=== PATIENT | female | born 1955 | race Caucasian/White ===

== ENCOUNTER 2021-06-01 04:41 | Emergency (ER) | payer BC, SELFPAY ==
[~2021-06-01] VITALS: Ht 157.5 cm; Wt 53.5 kg
[~2021-06-01 04:41] MED LIST: HYDR50CA PO; [UNRECOGNIZED DRUG - CODE] PO
[2021-06-01 04:50] VITALS: BP_SYST 153
--- NOTE | 2021-06-01 05:54 | NUR ---
ER examining patient in the lobby.
[2021-06-01] MEDS ORDERED: ONDANSETRON HCL 4 MG/2 ML VIAL IVP ONE (06:00)
[2021-06-01] MEDS ORDERED: MORPHINE 4 MG INJ. 4 MG/ML VIAL IVP ONE (06:00)
[2021-06-01] MEDS ORDERED: NACL 0.9% 1,000 ML IV ONE (06:00)
--- NOTE | 2021-06-01 07:15 | NUR ---
Assumed care of Pt.
--- NOTE | 2021-06-01 07:20 | NUR ---
Pt AAO bib c/o LLQ abd pain w/ nausea onset 1am. Pt has h/o migraine, fibromyalgia, GERD, and asthma. Pt reported 10/10 pain on arrival. Currently pain level is 3/10. V/S stable.
[2021-06-01 08:19] LABS: BASOPHILS # (AUTO) 0.1 K/uL (0.0-0.2); BASOPHILS % (AUTO) 0.4 % (0.0-2.0); HEMATOCRIT 42.8 % (36-48); LYMPHOCYTES # (AUTO) 2.1 K/uL (1.0-5.5); LYMPHOCYTES % (AUTO) 11.6 % (20.5-51.5); MEAN CORPUSCULAR HEMOGLOBIN 26 pg (27-31); MEAN CORPUSCULAR HGB CONC 33 % (32-36); MEAN CORPUSCULAR VOLUME 80 fL (79.0-98.0); MONOCYTES # (AUTO) 0.5 K/uL (0.0-1.0); MONOCYTES % (AUTO) 2.8 % (1.7-9.3); NEUTROPHILS # (AUTO) 15.3 K/uL (1.8-7.7); NEUTROPHILS % (AUTO) 85.2 % (40.0-70.0); PLATELET COUNT (AUTO) 367 K/uL (130-430); RED BLOOD CELL COUNT(AUTO) 5.34 MIL/uL (4.2-6.2); RED CELL DISTRIBUTION WIDTH 14.1 % (9.0-15.0); WHITE BLOOD COUNT (AUTO) 17.9 K/uL (4.8-10.8)
[2021-06-01] MEDS ORDERED: HYDROcodone/ACETAMIN 10-325 MG TAB PO ONE (08:30)
[2021-06-01] MEDS ORDERED: GABAPENTIN 300 MG CAPSULE PO ONE (08:30)
[2021-06-01] MEDS ORDERED: PREGABALIN 25 MG CAPSULE (LYRICA) PO ONE (08:30)
[2021-06-01] MEDS ORDERED: KETOROLAC TROMETHAMINE 60 MG/2 ML VIAL IM ONE (08:30)
[2021-06-01] MEDS ORDERED: ONDA4TAB5 PO (08:31)
[2021-06-01 08:32] LABS: CALCIUM 9.2 mg/dL (8.4-11.0); CREATININE 1.17 mg/dL (0.55-1.30); POTASSIUM 4.6 mmol/L (3.5-5.1)
[2021-06-01] MEDS ORDERED: TAMS-11 PO (08:32)
--- NOTE | 2021-06-01 08:40 | NUR ---
Urine specimen obtained and sent to lab for analysis.
[2021-06-01 08:45] LABS: TOTAL BILIRUBIN 0.8 mg/dL (0.0-1.0)
--- NOTE | 2021-06-01 09:06 | NUR ---
Pt is resting and awaiting disposition.
[2021-06-01 09:59] LABS: BILIRUBIN,URINE NEGATIVE (NEGATIVE); BLOOD, URINE 3+ (NEGATIVE); CLARITY/URINE SL CLOUDY (CLEAR); COLOR,URINE YELLOW (YELLOW); GLUCOSE,URINE NEGATIVE (NEGATIVE); KETONES,URINE 1+ (NEGATIVE); LEUKOCYTE ESTERASE ,URINE TRACE (NEGATIVE); NITRITE, URINE NEGATIVE (NEGATIVE); PH,URINE 5.5 (5.0-8.0); PROTEIN URINE TRACE (NEGATIVE); UROBILINOGEN,URINE 0.2 (0.2-1.0)
[2021-06-01 10:32] LABS: BACTERIA,URINE FEW /HPF (None Seen); RBC,URINE 20-50 /HPF (0-3)
[2021-06-01 10:35] VITALS: BP_SYST 148
--- NOTE | 2021-06-01 10:35 | NUR ---
Patient given written and verbal discharge instructions and verbalizes understanding. Dr. Darcie YOST MD discussed with patient the results and treatment provided. Patient in stable condition. ID arm band removed. IV catheter removed intact and dressing applied, no active bleeding. Rx of Zofran per Dr. Sprague. Patient educated on pain management and to follow up with PMD. Pain Scale 0/10. Opportunity for questions provided and answered. Medication side effect fact sheet provided.
== END 2021-06-01 10:35 | disposition home or self-care (01) ==
LOC: SED 04:41
DX: N20.0 Calculus of kidney (principal); J45.909 Unspecified asthma, uncomplicated; Z79.899 Other long term (current) drug therapy; Z20.822 Contact with and (suspected) exposure to COVID-19
CPT/HCPCS: 36415; 74176; 76376; 80053; 81000; 85025; 87086; 87426; 96372; 99284; J1885

== ENCOUNTER 2021-06-07 20:49 | Emergency (ER) | payer BC, SELFPAY ==
[~2021-06-07] VITALS: Ht 154.9 cm; Wt 53.5 kg
[~2021-06-07 20:49] MED LIST changes: -HYDR50CA PO; +ONDA4TAB5 PO; +TAMS-11 PO; -[UNRECOGNIZED DRUG - CODE] PO
[2021-06-07 21:30] VITALS: BP_SYST 150
--- NOTE | 2021-06-07 21:40 | NUR ---
Patient brought in by family c/o persistent left lower quadrant abdominal pain radiating to left flank pain since she was diagnosed with ureteral colic at this emergency department on June 01. CT scanning of the abdomen showed a 3 mm calculus in the proximal left ureter. Patient was discharged with a prescription for Flomax and [place]. Pain is persisted but no vomiting or fever. Patient reports taking [place] tonight without relief of pain. Patient breathing easy, not in distress. Patient ambulatory with assistance.
[2021-06-07 23:27] LABS: CALCIUM 9.2 mg/dL (8.4-11.0); CREATININE 1.19 mg/dL (0.55-1.30); POTASSIUM 4.3 mmol/L (3.5-5.1)
[2021-06-07 23:29] LABS: BASOPHILS # (AUTO) 0.1 K/uL (0.0-0.2); BASOPHILS % (AUTO) 0.7 % (0.0-2.0); EOSINOPHILS # (AUTO) 0.2 K/uL (0.0-0.4); HEMATOCRIT 39.2 % (36-48); HEMOGLOBIN 12.9 g/dL (12.0-16.0); LYMPHOCYTES # (AUTO) 3.2 K/uL (1.0-5.5); MEAN CORPUSCULAR HEMOGLOBIN 26 pg (27-31); MEAN CORPUSCULAR HGB CONC 33 % (32-36); MEAN CORPUSCULAR VOLUME 80 fL (79.0-98.0); MONOCYTES # (AUTO) 0.9 K/uL (0.0-1.0); MONOCYTES % (AUTO) 5.9 % (1.7-9.3); NEUTROPHILS # (AUTO) 11.5 K/uL (1.8-7.7); NEUTROPHILS % (AUTO) 72.4 % (40.0-70.0); PLATELET COUNT (AUTO) 310 K/uL (130-430); RED BLOOD CELL COUNT(AUTO) 4.93 MIL/uL (4.2-6.2); RED CELL DISTRIBUTION WIDTH 13.5 % (9.0-15.0); WHITE BLOOD COUNT (AUTO) 15.9 K/uL (4.8-10.8)
--- NOTE | 2021-06-07 23:30 | NUR ---
Patient resting quietly in waiting room, family with her. No acute distress noted. Vital signs within normal range.
[2021-06-07 23:32] LABS: ALBUMIN 3.3 g/dL (3.4-4.8); TOTAL BILIRUBIN 0.2 mg/dL (0.0-1.0)
[2021-06-07 23:45] LABS: BILIRUBIN,URINE NEGATIVE (NEGATIVE); BLOOD, URINE 3+ (NEGATIVE); CLARITY/URINE SL CLOUDY (CLEAR); COLOR,URINE YELLOW (YELLOW); GLUCOSE,URINE NEGATIVE (NEGATIVE); KETONES,URINE NEGATIVE (NEGATIVE); LEUKOCYTE ESTERASE ,URINE 1+ (NEGATIVE); NITRITE, URINE NEGATIVE (NEGATIVE); PH,URINE 5.5 (5.0-8.0); PROTEIN URINE TRACE (NEGATIVE); UROBILINOGEN,URINE 0.2 (0.2-1.0)
--- NOTE | 2021-06-08 00:30 | NUR ---
ER in triage examining patient.
[2021-06-08 00:34] LABS: BACTERIA,URINE MODERATE /HPF (None Seen); RBC,URINE 20-50 /HPF (0-3)
[2021-06-08] MEDS ORDERED: KETOROLAC TROMETHAMINE 60 MG/2 ML VIAL IM ONE (00:45)
[2021-06-08] MEDS ORDERED: NITROFURANTOIN MONOHYD/M-CRYST 100 MG CAPSULE (MacroBID) PO ONE (01:45)
[2021-06-08] MEDS ORDERED: NAPR-1172 PO (02:47)
[2021-06-08] MEDS ORDERED: NITR-85 PO (02:47)
[2021-06-08 03:02] VITALS: BP_SYST 145
--- NOTE | 2021-06-08 03:02 | NUR ---
Patient given written and verbal discharge instructions and verbalizes understanding. ER MD discussed with patient the results and treatment provided. Patient in stable condition. ID arm band removed. Rx of Macrobid and Naproxen sent to preferred pharmacy. Patient educated on pain management and to follow up with PMD. Pain Scale 4/10. Opportunity for questions provided and answered.
== END 2021-06-08 03:02 | disposition home or self-care (01) ==
LOC: SED 20:49
DX: N23 Unspecified renal colic (principal); N39.0 Urinary tract infection, site not specified; J45.909 Unspecified asthma, uncomplicated; Z88.0 Allergy status to penicillin; Z88.2 Allergy status to sulfonamides; Z88.1 Allergy status to other antibiotic agents; Z79.899 Other long term (current) drug therapy
CPT/HCPCS: 36415; 80053; 81000; 83690; 85025; 87086; 96372; 99283; J1885

== ENCOUNTER 2021-06-10 13:04 | Inpatient (IN) | payer BC, SELFPAY ==
[~2021-06-10] VITALS: Ht 154.9 cm; Wt 61.2 kg
[~2021-06-10 13:04] MED LIST changes: +NAPR-1172 PO; +NITR-85 PO
[2021-06-10 14:30] VITALS: BP_SYST 147
[2021-06-10 15:02] LABS: BILIRUBIN,URINE NEGATIVE (NEGATIVE); BLOOD, URINE NEGATIVE (NEGATIVE); COLOR,URINE YELLOW (YELLOW); GLUCOSE,URINE NEGATIVE (NEGATIVE); KETONES,URINE NEGATIVE (NEGATIVE); LEUKOCYTE ESTERASE ,URINE TRACE (NEGATIVE); NITRITE, URINE NEGATIVE (NEGATIVE); PH,URINE 5.5 (5.0-8.0); PROTEIN URINE TRACE (NEGATIVE); UROBILINOGEN,URINE 0.2 (0.2-1.0)
[2021-06-10 15:06] LABS: CLARITY/URINE SLIGHTLY HAZY (CLEAR)
[2021-06-10 15:12] LABS: BASOPHILS # (AUTO) 0.1 K/uL (0.0-0.2); BASOPHILS % (AUTO) 0.9 % (0.0-2.0); EOSINOPHILS # (AUTO) 0.3 K/uL (0.0-0.4); EOSINOPHILS % (AUTO) 2.2 % (0.0-4.0); HEMATOCRIT 37.2 % (36-48); LYMPHOCYTES % (AUTO) 24.7 % (20.5-51.5); MEAN CORPUSCULAR HEMOGLOBIN 26 pg (27-31); MEAN CORPUSCULAR HGB CONC 32 % (32-36); MEAN CORPUSCULAR VOLUME 82 fL (79.0-98.0); MONOCYTES # (AUTO) 0.5 K/uL (0.0-1.0); MONOCYTES % (AUTO) 4.3 % (1.7-9.3); NEUTROPHILS # (AUTO) 8.3 K/uL (1.8-7.7); NEUTROPHILS % (AUTO) 67.9 % (40.0-70.0); PLATELET COUNT (AUTO) 326 K/uL (130-430); RED BLOOD CELL COUNT(AUTO) 4.55 MIL/uL (4.2-6.2); RED CELL DISTRIBUTION WIDTH 14.2 % (9.0-15.0); WHITE BLOOD COUNT (AUTO) 12.2 K/uL (4.8-10.8)
[2021-06-10 15:16] LABS: BACTERIA,URINE MODERATE /HPF (None Seen); RBC,URINE 0-3 /HPF (0-3)
[2021-06-10 15:32] LABS: CALCIUM 8.9 mg/dL (8.4-11.0); CREATININE 1.53 mg/dL (0.55-1.30); POTASSIUM 4.7 mmol/L (3.5-5.1)
[2021-06-10 15:36] LABS: ALBUMIN 3.8 g/dL (3.4-4.8); TOTAL BILIRUBIN 0.3 mg/dL (0.0-1.0)
[2021-06-10] MEDS ORDERED: INSULIN REGULAR, HUMAN 100 UNITS/ML, 10 ML VIAL (humuLIN R) SUBCUT PRN (16:30)
[2021-06-10] MEDS ORDERED: HYDROcodone/ACETAMIN 10-325 MG TAB PO ONE (17:30)
[2021-06-10] MEDS ORDERED: GABAPENTIN 300 MG CAPSULE PO ONE (17:30)
[2021-06-10] MEDS ORDERED: LORazepam 2 MG/ML VIAL IVP PRN (17:45)
[2021-06-10] MEDS ORDERED: NALOXONE HCL 0.4 MG/ML AMP (NARCAN) IVP PRN ×2 (17:45)
[2021-06-10] MEDS ORDERED: MORPHINE 2 MG/ML INJ. SYRINGE IVP PRN ×2 (17:45)
[2021-06-10] MEDS ORDERED: ZOLPIDEM TARTRATE 5 MG TABLET PO PRN (17:45)
[2021-06-10] MEDS ORDERED: DOCUSATE SODIUM 100 MG CAPSULE PO PRN (17:45)
[2021-06-10] MEDS ORDERED: POTASSIUM CHLORIDE 20 MEQ TAB.PRT.SR PO PRN (17:45)
[2021-06-10] MEDS ORDERED: ONDANSETRON HCL 4 MG/2 ML VIAL IVP PRN (17:45)
[2021-06-10] MEDS ORDERED: ACETAMINOPHEN 325 MG TABLET PO PRN (17:45)
[2021-06-10] MEDS ORDERED: MUPIROCIN 2% TOPICAL OINTMENT 22 GM NS PRN (17:45)
[2021-06-10] MEDS ORDERED: MAGNESIUM SULFATE 50 ML IV PRN (17:45)
[2021-06-10] MEDS ORDERED: LEVOFLOXACIN IN DEXTROSE 5 % 100 ML IV SCH (18:00)
[2021-06-10] MEDS ORDERED: PROCHLORPERAZINE MALEATE 5 MG TABLET PO ONE (19:30)
[2021-06-10] MEDS ORDERED: HEPARIN SODIUM,PORCINE 5,000 UNITS/ML VIAL SUBCUT SCH (21:00)
[2021-06-10] MEDS ORDERED: HYDROcodone/ACETAMIN 10-325 MG TAB ONE (21:16)
[2021-06-10] MEDS ORDERED: GABAPENTIN 300 MG CAPSULE ONE (21:16)
[2021-06-10] MEDS: NACL 0.9% 1,000 ML IV SCH (21:45)
[2021-06-11] MEDS: NACL 0.9% 1,000 ML IV SCH (06:30)
[2021-06-11 06:41] LABS: BASOPHILS # (AUTO) 0.1 K/uL (0.0-0.2); BASOPHILS % (AUTO) 0.8 % (0.0-2.0); EOSINOPHILS # (AUTO) 0.2 K/uL (0.0-0.4); EOSINOPHILS % (AUTO) 2.8 % (0.0-4.0); HEMATOCRIT 33.9 % (36-48); LYMPHOCYTES % (AUTO) 37.7 % (20.5-51.5); MEAN CORPUSCULAR HEMOGLOBIN 26 pg (27-31); MEAN CORPUSCULAR HGB CONC 32 % (32-36); MEAN CORPUSCULAR VOLUME 82 fL (79.0-98.0); MONOCYTES # (AUTO) 0.6 K/uL (0.0-1.0); NEUTROPHILS % (AUTO) 50.7 % (40.0-70.0); PLATELET COUNT (AUTO) 277 K/uL (130-430); RED BLOOD CELL COUNT(AUTO) 4.13 MIL/uL (4.2-6.2); RED CELL DISTRIBUTION WIDTH 14.1 % (9.0-15.0)
[2021-06-11 06:54] LABS: CALCIUM 8.1 mg/dL (8.4-11.0); CREATININE 1.18 mg/dL (0.55-1.30); POTASSIUM 4.5 mmol/L (3.5-5.1)
[2021-06-11 07:53] LABS: HEMOGLOBIN 10.7 g/dL (12.0-16.0)
[2021-06-11] MEDS ORDERED: IBUP-1969 PO (08:50)
[2021-06-11] MEDS ORDERED: HYDR-3917 PO (08:50)
[2021-06-11] MEDS ORDERED: TAMSULOSIN HCL 0.4 MG CAP PO SCH (09:00)
[2021-06-11 13:35] VITALS: BP_SYST 155
== END 2021-06-11 13:30 | disposition home or self-care (01) | DRG 690 ==
LOC: SED 13:04 → SMU 16:19
PROVIDERS: ADMIT General Practice; ATTEND General Practice
DX: N13.6 Pyonephrosis (principal); N20.1 Calculus of ureter; N17.0 Acute kidney failure with tubular necrosis; G40.909 Epilepsy, unspecified, not intractable, without status epilepticus; I10 Essential (primary) hypertension; Z20.822 Contact with and (suspected) exposure to COVID-19; E11.9 Type 2 diabetes mellitus without complications; Z87.442 Personal history of urinary calculi; Z88.2 Allergy status to sulfonamides; Z88.0 Allergy status to penicillin; Z79.899 Other long term (current) drug therapy; Z88.8 Allergy status to other drugs, medicaments and biological substances
CPT/HCPCS: 36415; 76770; 80048; 80053; 81000; 82962; 83036; 83735; 85025; 87086; 96365; 96372; 99285; J1644; J1956; Q0164